=== PATIENT | male | born 1970 | race Caucasian/White ===

== ENCOUNTER → 2021-01-16 08:57 | Outpatient (CLI) | payer OTHER, SELFPAY ==
--- NOTE | ~2021-01-16 | XR_ITS ---
XR abdomen/kub 1V 01/16/2021 09:15 Indication: Left lower quadrant pain Procedure: KUB Comparison: 01/06/2008 Findings: There are large left renal stones. There are right renal stones as well. There is a left pe lvic phlebolith. No definite ureteral stones are identified. Bowel pattern is nonobstructive. No acut e osseous abnormality. Impression: 1: Bilateral nephrolithiasis, largest in the lower pole of the left kidney measuring approximately 2 cm greatest dimension. Reviewed, dictated and finalized at location A. Impression: 1: Bilateral nephrolithiasis, largest in the lower pole of the left kidney mak uring approximately 2 cm greatest dimension.
== END ==
PROVIDERS: PCP Family Medicine; Visit Provider Family Medicine
DX: N20.0 Calculus of kidney (principal)
CPT/HCPCS: 74018

== ENCOUNTER → 2021-02-09 11:11 | Outpatient (CLI) | payer OTHER, SELFPAY ==
--- NOTE | ~2021-02-09 | XR_ITS ---
EXAMINATION: XR abdomen/kub 1V EXAM DATE: 02/09/2021 12:06 INDICATION: Left renal stone. No acute complaints today. TECHNIQUE: Frontal projection(s) of the abdomen for interpretation. Comparison is made to prior exami nation from 01/16/2021. FINDINGS: Left double-J ureteral stent may have migrated proximally, the distal loop appears uncoile d and could be within the distal aspect of the left ureter. Proximal loop appears to be in high posit ion. There is large left nephrolithiasis, 2 stones measuring up to about 1 and 2 cm. Nonobstructive b owel gas pattern. Probable small right nephrolithiasis. IMPRESSION: 1. Left ureteral stent which may have migrated proximally, distal aspect appears uncoiled overlying the left ureter. 2. Bilateral nephrolithiasis. Reviewed, dictated and finalized at location B. IMPRESSION: 1. Left ureteral stent which may have migrated proximally, distal aspect appea rs uncoiled overlying the left ureter. 2. Bilateral nephrolithiasis.
== END ==
PROVIDERS: PCP Family Medicine; Visit Provider Urology
DX: N20.0 Calculus of kidney (principal)
CPT/HCPCS: 74018

== ENCOUNTER → 2021-05-08 08:57 | Outpatient (CLI) | payer OTHER, SELFPAY ==
--- NOTE | ~2021-05-08 | XR_ITS ---
EXAMINATION: XR abdomen/kub 1V DATE: 05/08/2021 09:12 INDICATION: Left renal stone. TECHNIQUE: A supine view of the abdomen on 2 radiographs was obtained. COMPARISON: Abdomen radiographs 02/09/2021 FINDINGS: There is a phlebolith in left pelvis. There is no visible urolithiasis. There are no dilate d loops of bowel. IMPRESSION: 1. No visible urolithiasis. Reviewed, dictated and finalized at location B. MILLING MACHINIST IMPRESSION: 1. No visible urolithiasis.
== END ==
PROVIDERS: Visit Provider Urology
DX: N20.0 Calculus of kidney (principal)
CPT/HCPCS: 74018

== ENCOUNTER 2022-03-29 01:04 | Day surgery (SDC) | payer OTHER, SELFPAY ==
[2022-03-13 12:02] VITALS: BMI 33.0
--- NOTE | 2022-03-28 16:27 | PM.HPGS ---
History of Present Illness History of Present Illness Consent: Risks, benefits, and alternatives have been discussed and questions answered. Patient agrees to proceed with procedure. Chief complaint: neoplasm screening Narrative: Richard George is a 51 year old male referred for colon cancer screening Review of Systems Review of Systems: All systems reviewed & are unremarkable except as noted in HPI and below PMFSH Past Medical History Medical History HTN (hypertension) Hyperlipidemia Nephrolithiasis s/p nephrolithotomy Surgical History Surgical History Nephrostomy status L secondary to stone Family History Family History Mother Family history of diabetes mellitus in first degree relative Father Patient's father is in good health, Onset Age: 65 Sibling Patient's brother is in good health, Onset Age: 41 Social History Social History Smoking status: Never smoker Second hand tobacco smoke exposure: No Alcohol intake: current Drinks per week: 1 Substance use: never Substance use type: does not use Living arrangements: with family Gender identity (if verbalized by the patient): Male Sexual Orientation (if Verbalized by the Patient): Straight or Heterosexual Spiritual care concerns: No Meds Home Medications and Allergies Home Medications Medication Instructions Recorded Confirmed Type olmesartan 40 mg tablet 40 mg PO DAILY 07/18/21 03/29/22 History fenofibrate 160 mg tablet 160 mg PO DAILY 03/13/22 03/29/22 History simvastatin 40 mg tablet 40 mg PO DAILY 03/13/22 03/29/22 History Allergies Allergy/AdvReac Type Severity Reaction Status Date / Time No Known Allergies Allergy Verified 03/29/22 06:46 Exam Const: General: alert Orientation/consciousness: patient oriented x3 Resp: Auscultation: clear to auscultation bilaterally Cardio: Rhythm: regular rhythm GI: GI Palp: Yes Soft to palpation and No Tenderness to palpation present (GI) Neuro: General: patient oriented x3 Assessment and Plan Assessment and plan (1) Colon cancer screening: Code(s): Z12.11 - Encounter for screening for malignant neoplasm of colon Status: Acute Assessment and Plan: Colonoscopy with possible biopsy or polypectomy or cautery or injection of substances.
[2022-03-29 06:47] VITALS: BP 147/108; PULSE 73; RESP 17; TEMP 36; O2SAT 99; BMI 33.7
[2022-03-29] MEDS: LACTATED RINGERS 1,000 ML 150 ML IV CONT (06:56)
--- NOTE | 2022-03-29 07:13 | P.PNAN_ITS ---
Anes - Initial Pre Proc Eval Procedure: Operation Date: 03/29/22 08:15 Proposed Procedures p Screening Colonoscopy - Rashaun Garibay MD Date/Time: 03/29/22 07:13 Surgeon: Rashaun Garibay MD Pre Op Diagnosis: neoplasm screening Patient Data Age: 51 Gender: M Height: 1.78 m Weight: 106.8 kg Last Vital Signs Temp 36.0 C L 03/29/22 06:47 Pulse 73 03/29/22 06:47 Resp 17 03/29/22 06:47 BP 147/108 H 03/29/22 06:47 Pulse Ox 99 03/29/22 06:47 O2 Del Method Room Air 03/29/22 06:47 Allergies Allergy/AdvReac Type Severity Reaction Status Date / Time No Known Allergies Allergy Verified 03/29/22 06:46 Home Medications Medication Instructions Recorded Confirmed Type olmesartan 40 mg tablet 40 mg PO DAILY 07/18/21 03/29/22 History fenofibrate 160 mg tablet 160 mg PO DAILY 03/13/22 03/29/22 History simvastatin 40 mg tablet 40 mg PO DAILY 03/13/22 03/29/22 History Patient hx anesthesia problems: none Family hx anesthesia problems: none Results Review: All pre-operative results and documents have been reviewed as part of the pre- operative evaluation. [facility] Past Medical History Medical History (Updated 03/29/22 @ 07:14 by Piotr Edwards MD) HTN (hypertension) Hyperlipidemia Nephrolithiasis s/p nephrolithotomy Surgical History Surgical History Nephrostomy status L secondary to stone Family History Family History Mother Family history of diabetes mellitus in first degree relative Father Patient's father is in good health, Onset Age: 65 Sibling Patient's brother is in good health, Onset Age: 41 Social History Social History Smoking status: Never smoker Second hand tobacco smoke exposure: No Alcohol intake: current Drinks per week: 1 Substance use: never Substance use type: does not use Living arrangements: with family Gender identity (if verbalized by the patient): Male Sexual Orientation (if Verbalized by the Patient): Straight or Heterosexual Spiritual care concerns: No Anes - Eval Final PreProcedure Day of Procedure 03/29/22 07:13 Patient weight: obese Heart: regular rate and rhythm Lungs: clear to auscultation Airway: Mallampati scale class II Neurological: alert and oriented Last oral intake: >/= 8 hours ASA classification: II Emergent: no Anesthetic plan: proceed Anesthesia type and monitoring: general GIVS and standard monitoring Results Review: All pre-operative results and documents have been reviewed as part of the pre- operative evaluation. Informed Consent: The patient's anesthetic plan and its attendant risks and benefits were discussed with the patient/family/POA. Questions were solicited and answers provided to the satisfaction of the patient/family/POA.
[2022-03-29 08:27] VITALS: BP 141/85; PULSE 77; RESP 23; O2SAT 96
[2022-03-29 08:37] VITALS: BP 136/75; PULSE 75; RESP 19; O2SAT 97
[2022-03-29 08:47] VITALS: BP 129/83; PULSE 70; RESP 20; O2SAT 97
== END 2022-03-29 08:56 | disposition home or self-care (01) ==
PROVIDERS: PCP Family Medicine; Visit Provider Internal Medicine Gastroenterology
PROC: 0DJD8ZZ Inspection of Lower Intestinal Tract, Via Natural or Artificial Opening Endoscopic (ICD-10-PCS; CPT 45378; principal; 2022-03-29 08:15)
DX: Z12.11 Encounter for screening for malignant neoplasm of colon (principal); K57.30 Diverticulosis of large intestine without perforation or abscess without bleeding; I10 Essential (primary) hypertension; E78.5 Hyperlipidemia, unspecified; E66.9 Obesity, unspecified; Z68.33 Body mass index [BMI] 33.0-33.9, adult
CPT/HCPCS: 45378; J2704; J7120

== ENCOUNTER → 2022-05-27 08:25 | Outpatient (CLI) | payer OTHER, SELFPAY ==
--- NOTE | ~2022-05-27 | XR_ITS ---
EXAMINATION: XR abdomen/kub 1V INDICATION: Left renal stone TECHNIQUE: Supine views of the abdomen were obtained on 2 radiographs. COMPARISON: 05/08/2021 FINDINGS: No urolithiasis is identified. There is a phlebolith of the left pelvis. The visualized mal g bases are clear. There is mild osteoarthritis of the hips. The bowel gas pattern is normal. IMPRESSION: 1. No urolithiasis identified. Reviewed, dictated and finalized at location B. DAY SENIOR ASSOCIATE
== END ==
PROVIDERS: PCP Family Medicine; Visit Provider Urology
DX: N20.0 Calculus of kidney (principal)
CPT/HCPCS: 74018